=== PATIENT | female | born 1975 | race Two or more races ===

== ENCOUNTER 2024-02-27 17:36 | Emergency (ER) | payer BC, OTHER ==
[~2024-02-27] VITALS: Ht 157.5 cm; Wt 95.0 kg
[2024-02-27 19:03] VITALS: BP 150/88; PULSE 74; RESP 19; TEMP 97.9; O2SAT 99
--- NOTE | 2024-02-27 19:16 | DVH ---
RIGHT KNEE RADIOGRAPHS CLINICAL HISTORY: TRAUMA PAIN TECHNIQUE: AP, lateral, oblique and sunrise views of the right knee. Comparison: None FINDINGS/IMPRESSION: There is no evidence of fracture or dislocation. The alignment of the right knee is appropriate. Join t spaces are maintained. Small knee joint effusion.The surrounding soft tissues appear unremarkable.
[2024-02-27] MEDS ORDERED: IBUP-1456 PO (19:34)
[2024-02-27] MEDS: OXYCODONE W/ ACETAMINOPHEN 5/325MG TABLET PO ONE (19:39)
--- NOTE | 2024-02-27 19:39 | ED.PDOC ---
Back pain HPI HPI Comments THIS IS A 48-YEAR-OLD FEMALE CHIEF COMPLAINT RIGHT KNEE PAIN. PATIENT STATES MECHANICAL FALL SHE WAS WALKING DOWN THE STAIRS SLIPPED AND HYPERFLEXED HER RIGHT LEG AND KNEE. SHE IS COMPLAINING OF POSTERIOR RIGHT KNEE PAIN AND RIGHT THIGH MUSCLE PAIN WITH SPASMS 8/10 ON PAIN SCALE SHARP SHOOTING IN NATURE. SHE NOTES INCREASED PAIN WITH WEIGHT-BEARING IN THE BACK OF HER KNEE. SHE STATES FEELS UNSTABLE. SHE DENIES ANY OTHER KNOWN INJURY. DENIES LOC, HITTING HER HEAD, DENIES NECK OR BACK PAIN. DENIES NUMBNESS OR WEAKNESS. STATES HISTORY OF ACL REPAIR IN HER LEFT KNEE. Chief Complaint: Fall Injury Time Seen by MD: 18:20 Reviewed Notes: Nurses Notes, Medications, Allergies Home Meds Active Scripts Ibuprofen (Ibuprofen) 800 Mg Tab, 1 TAB PO TID PRN for 10 Days, #30 TAB Prov:ALEKSANDRA RICARDO LEAD CASTER 02/27/24 Information Source: Patient Mode of Arrival: Wheelchair Past Medical History PAST MEDICAL HISTORY: Denies Surgical History: Denies all surgeries Surgical History (Other): LEFT KNEE ACL REPAIR [employer] History: No Pertinent [employer]DER History Family History Family History: Reviewed,noncontributory to illness Social History Smoker: Non-Smoker Alcohol: Denies ETOH Use Drugs: Denies Drug Use Constitutional: denies: chills, diaphoresis, fatigue, fever, malaise, sweats, weakness, others EENTM: denies: blurred vision, double vision, ear bleeding, ear discharge, ear drainage, ear pain, ear ringing, eye pain, eye redness, hearing loss, mouth pain, mouth swelling, nasal discharge, nose bleeding, nose congestion, nose pain, photophobia, tearing, throat pain, throat swelling, voice changes, others Respiratory: denies: cough, hemoptysis, orthopnea, SOB at rest, shortness of breath, SOB with excertion, stridor, wheezing, others Cardiovascular: denies: chest pain, dizzy spells, diaphoresis, Dyspnea on exertion, edema, irregular heart beat, left arm pain, lightheadedness, palpitations, PND, syncope, others Gastrointestinal: denies: abdomen distended, abdominal pain, blood streaked bowels, constipated, diarrhea, dysphagia, difficulty swallowing, hematemesis, melena, nausea, poor appetite, poor fluid intake, rectal bleeding, rectal pain, vomiting, others Genitourinary: denies: abnormal vagina bleeding, burning, dyspareunia, dysuria, flank pain, frequency, hematuria, incontinence, pain, , vagina discharge, urgency, others Neurological: denies: dizziness, fainting, headache, left sided numbness, left sided weakness, numbness, paresthesia, pre-existing deficit, right sided numbness, right sided weakness, seizure, speech problems, tingling, tremors, weakness, others Musculoskeletal: reports: others (RIGHT KNEE PAIN); denies: back pain, gout, joint pain, joint swelling, muscle pain, muscle stiffness, neck pain Physical Exam General Appearance: No Apparent Distress, Normal HEENT: Pharynx Normal Neck: Full Range of Motion, Non-Tender Respiratory: Lungs Clear, No Respiratory Distress, Normal Breath Sounds Cardiovascular: No Murmur, Normal Peripheral Pulses, Regular Rate/Rhythm Breast Exam: Deferred Gastrointestinal: Non Tender, Soft Genitalia: Deferred Pelvic: Deferred Rectal: Deferred Extremities: Normal capillary refill, Normal inspection, Normal range of motion, Non-tender, No pedal edema Musculoskeletal : Location: Right Extremity Location: Knee (MODERATE TENDERNESS PALPATED POSTERIOR KNEE POPLITEAL ASPECT. NEGATIVE CAPRICE'S, NEGATIVE DRAWER TEST. KNEE APPEARS TO BE STABLE. NEGATIVE BALLOTTEMENT NO NOTED ABRASIONS, LACERATIONS OR LESIONS. STRENGTH MOTION AND SENSATION INTACT POSITIVE PEDAL PULSE.) Apperance: Normal Neurologic: Alert, food broker II-XII nml as Tested, No Motor Deficits, Normal Affect, Normal Mood, No Sensory Deficits Cerebellar Function: Normal Reflexes: Normal Skin: Dry, Normal Color, Warm Lymphatic: No Adenopathy Was a procedure done? Was a procedure done?: No Back Pain Differential Dx Differential Diagnosis: Fracture, Musculoskeletal Pain, Strain X-Ray, Labs, Meds, VS Vital Signs Date Time Temp Pulse Resp B/P (MAP) Pulse Ox O2 Delivery O2 Flow Rate FiO2 02/27/24 19:03 97.9 74 19 150/88 (108) 99 97.9 02/27/24 19:03 74 19 99 Room Air 02/27/24 17:47 97.9 74 19 150/88 (108) 99 Current Medications Medications (Trade) Dose Ordered Sig/Thang Route Start Time Stop Time Status Last Admin Oxycodone/ Acetaminophen (Percocet 5/ 325MG Tablet) 1 tab ONCE ONCE PO 02/27/24 19:30 02/27/24 19:32 DC 02/27/24 19:39 Ketorolac Tromethamine (Toradol Injection) 60 mg ONCE ONCE IM 02/27/24 19:30 02/27/24 19:32 DC 02/27/24 19:40 X-Ray, Labs, Meds, VS Comment RIGHT KNEE X-RAY SHOWS NO DERANGEMENT, ACUTE FRACTURES, OR OSSEOUS LESIONS. PATIENT GIVEN TORADOL 60 MG IM AND PERCOCET 5 MG P.O.. SHE REPORTS IMPROVEMENT IN PAIN AND FUNCTION REQUESTING DISCHARGE AT THIS TIME. PATIENT PLACED IN RIGHT KNEE BRACE CRUTCHES ALONG WITH TRAINING PROVIDED. SCRIPT IBUPROFEN 800 MG 1 TAB T.I.D.. ADVISED ON RICE. ADVISED TO FOLLOW UP WITH HER PCP IN 2-3 DAYS IF NO IMPROVEMENT CONSIDER FURTHER IMAGING SUCH MRI. ER RETURN PRECAUTIONS GIVEN. PATIENT AGREES WITH DISCHARGE PLAN OF CARE. PATIENT HOME WITH DRIVING. Time of 1ST Reevaluation: 19:40 Reevaluation 1ST: Improved Patient Education/Counseling: Diagnosis, Treatment, Prognosis, Need For Follow Up Family Education/Counseling: Diagnosis, Treatment, Prognosis, Need For Follow Up Departure 1 Departure Time of Disposition: 19:58 Impression: Primary Impression: Sprain of knee/leg Qualified Codes: S83.91XA - Sprain of unspecified site of right knee, initial encounter Disposition: HOME / SELF CARE / HOMELESS Condition: Stable e-Prescriptions Ibuprofen (Ibuprofen) 800 Mg Tab 1 TAB PO TID PRN for 10 Days, #30 TAB Prov: ALEKSANDRA RICARDO 02/27/24 Discharged With: Spouse Critical Care Note Critical Care Time?: No Stability Stability form required: ALEKSANDRA Solorzano Feb 27, 2024 19:39
[2024-02-27] MEDS: KETOROLAC TROMETH 60MG/2ML VIAL IM ONE (19:40)
== END 2024-02-27 19:55 | disposition home or self-care (01) ==
LOC: ER 17:36
DX: S83.8X1A Sprain of other specified parts of right knee, initial encounter (principal); Z98.890 Other specified postprocedural states; Z79.899 Other long term (current) drug therapy; W10.8XXA Fall (on) (from) other stairs and steps, initial encounter; Y93.01 Activity, walking, marching and hiking; Y92.89 Other specified places as the place of occurrence of the external cause; Y99.8 Other external cause status
CPT/HCPCS: 29505; 73562; 96372; 99283; J1885